=== PATIENT | female | born 1955 | race Caucasian/White ===

== ENCOUNTER 2016-11-22 18:42 | Emergency (ER) | payer MEDICARE ==
--- NOTE | ~2016-11-22 | CR111 ---
[facility]. [facility] A Service of [facility] & [facility] RADIOLOGY TEXT RESULTS PATIENT: SHARON ZUNIGA LOCATION: SED : 55 UNIT #: [id number] AGE: [address]: My Gracia APRN SEX: F ORDER DR: [id number] [address] [address] [id number] E MR#: [id number] Acc #: [id number] NAME: SHARON ZUNIGA : 1955 SEX: F STUDY DATE/TIME: 11/22/2016 18:47 UNIT: SED ROOM: STUDY DESCRIPTION: CR Finger 2 View 3rd Rt Attending Physician: My Gracia A.P.R.N. Ordering Physician: My Chavira A.P.R.N. [facility] Care Physician[facility] REPORT This report is preliminary unless electronic signature is present. EXAM Right third digit 3 views HISTORY Jammed finger. Pain today. FINDINGS 3 views of the right third digit demonstrate moderate flexion deformity at the DIP joint. No fractures identified. No joint space narrowing or opaque foreign body. IMPRESSION Moderate flexion deformity at the DIP joint of the third digit. No fracture. Dictated by... Js Smith M.D. THIS IS AN ELECTRONICALLY VERIFIED REPORT Js Smith M.D. at 11/22/2016 11:27 PM DFL/lanar TD: 11/22/2016 19:20 JOB #: [id number] MEDICAL IMAGING REPORT Page 1 of 1
[~2016-11-22 18:42] MED LIST: HYDROCODON-ACE1 EAC7 PO; NAPROSYN500 MG PO; NEXIUM PO; PHENERGAN25 M1 PO; PRILOSEC PO; RANITIDINE HCL150 M1 PO
== END 2016-11-22 19:41 | disposition home or self-care (01) ==
LOC: SED 18:42
DX: S63.632A Sprain of interphalangeal joint of right middle finger, initial encounter (principal); K21.9 Gastro-esophageal reflux disease without esophagitis; F17.210 Nicotine dependence, cigarettes, uncomplicated; Z90.710 Acquired absence of both cervix and uterus; Z90.49 Acquired absence of other specified parts of digestive tract; W23.0XXA Caught, crushed, jammed, or pinched between moving objects, initial encounter; Y92.009 Unspecified place in unspecified non-institutional (private) residence as the place of occurrence of the external cause
CPT/HCPCS: 29130; 73140; 99283

== ENCOUNTER 2017-03-02 22:06 | Emergency (ER) | payer MEDICARE, OTHER ==
--- NOTE | ~2017-03-02 | CT15 ---
[facility] A Service of [facility] & [facility] RADIOLOGY TEXT RESULTS PATIENT: SHARON ZUNIGA LOCATION: [facility] : 55 UNIT #: [id number] AGE: [address]: Jakob Murillo MD SEX: F ORDER DR: [id number] [facility] [address] [place], [place] [address] [id number] E MR#: [id number] Acc #: [id number] NAME: SHARON ZUNIGA. : 1955 SEX: F STUDY DATE/TIME: 03/03/2017 2:11 UNIT: [facility] ROOM: STUDY DESCRIPTION: CT Angio Chest Attending Physician: Rodríguez Murillo M.D. Ordering Physician: Tyler Fountain M.D. Primary Care Physician: [facility] IMAGING REPORT This report is preliminary unless electronic signature is present EXAM CT chest and abdomen with angiographic reconstructions INDICATION Chest pain starting today with abdomen pain on both sides as well. Evaluate for aortic dissection. TECHNIQUE The patient was given 100 mL of Isovue 370 and spiral imaging was performed through the chest and abdomen. 3-D reconstructions of the arterial structures were generated. There is a comparison abdomen and pelvic CT scan from 07/16/[address] chest from 07/26/[address]. [address] examination was performed with one or more of the following radiation dose reduction techniques: automatic exposure control, adjustment of mA and/or kV according to patient size, and iterative reconstruction. FINDINGS There is a noncalcified right lower lobe nodule measuring 7 mm in diameter. It was present in 2007 and has not changed. The thyroid gland is normal. The aorta is normal in size. The thoracic aorta is normal in appearance. There is no dissection. The abdominal aorta is normal in size and appears normal. There is no mediastinal or hilar adenopathy. The liver, gallbladder, spleen, pancreas, adrenal glands and kidneys are normal except for a 1 cm left renal cyst. There is minimal air in the common bile duct. There is no adenopathy. The bowel is normal. The bones are unremarkable. IMPRESSION 1. The thoracic and abdominal aorta are normal in appearance. 2. Stable noncalcified nodule right lower lobe unchanged from 2008. 3. Small bubble of air in the distal common bile duct of uncertain significance. Correlation with previous sphincterotomy is recommended. [facility] A Service of [facility] & [facility] RADIOLOGY TEXT RESULTS PATIENT: SHARON ZUNIGA LOCATION: [facility] : 55 UNIT #: [id number] AGE: [address]: Jakob Murillo MD SEX: F ORDER DR: 4. Otherwise normal. Dictated by... Osbaldo Penny M.D. THIS IS AN ELECTRONICALLY VERIFIED REPORT Osbaldo Penny M.D. at 03/03/2017 8:21 PM MICHELLE/micah TD: 03/03/2017 15:27 JOB #: [id number] MEDICAL IMAGING REPORT Page 1 of 1 COPY
--- NOTE | ~2017-03-02 | CT13 ---
[facility] A Service of [facility] & [facility] RADIOLOGY TEXT RESULTS PATIENT: SHARON ZUNIGA LOCATION: [facility] : 55 UNIT #: [id number] AGE: [address]: Jakob Murillo MD SEX: F ORDER DR: [id number] [facility] [address] [place], [place] [address] [id number] E MR#: [id number] Acc #: [id number] NAME: SHARON ZUNIGA : 1955 SEX: F STUDY DATE/TIME: 03/03/2017 2:11 UNIT: [facility] ROOM: STUDY DESCRIPTION: CT Angio Abdomen Attending Physician: Jakob Murillo Ordering Physician: Tyler Fountain M.D. Primary Care Physician: [facility]. MEDICAL IMAGING REPORT This report is preliminary unless electronic signature is present EXAM CT angiogram abdomen FINDINGS Please see CT chest angiogram for results. Dictated by... Osbaldo Penny M.D. THIS IS AN ELECTRONICALLY VERIFIED REPORT Osbaldo Penny M.D. at 03/03/2017 8:21 PM MICHELLE/micah TD: 03/03/2017 15:23 JOB #: [id number] MEDICAL IMAGING REPORT Page 1 of 1 COPY
--- NOTE | ~2017-03-02 | CR72 ---
[facility] A Service of [facility] & [facility] RADIOLOGY TEXT RESULTS PATIENT: SHARON ZUNIGA LOCATION: [facility] : 55 UNIT #: [id number] AGE: [address]: Jakob Murillo MD SEX: F ORDER DR: [id number] [facility] [address] [place], [place] [address] [id number] E MR#: [id number] Acc #: [id number] NAME: SHARON ZUNIGA. : 1955 SEX: F STUDY DATE/TIME: 03/02/2017 23:22 UNIT: [facility] ROOM: STUDY DESCRIPTION: CR Chest Single View Portable Attending Physician: Rodríguez Murillo M.D. Ordering Physician: Tyler Fountain M.D. Primary Care Physician: [facility] MEDICAL IMAGING REPORT This report is preliminary unless electronic signature is present EXAM Portable chest, 03/02/2017. INDICATIONS Chest pain beginning today, shortness of air. COMPARISON None. FINDINGS A portable view of the chest was obtained. The heart size and vascularity are normal. The lungs are clear. The bones are unremarkable. IMPRESSION No active disease. Dictated by... Osbaldo Penny M.D. THIS IS AN ELECTRONICALLY VERIFIED REPORT Osbaldo Penny M.D. at 03/03/2017 8:21 PM MICHELLE/linda TD: 03/03/2017 14:30 JOB #: [id number] MEDICAL IMAGING REPORT Page 1 of 1 COPY
--- NOTE | ~2017-03-02 | EKG ---
PATIENT: SHARON ZUNIGA UNIT #: [id number] Ventricular Rate: 68 BPM Atrial Rate: 68 BPM P-R Interval: 142 ms QRS Duration: 72 ms Q-T Interval: 346 ms QTC Calculation(Bezet): 367 ms P [place] Station: 81 degrees Calculated R [place]: 9 degrees Calculated T [place] Station: 9 degrees Diagnosis Line: Normal sinus rhythm Diagnosis Line: Nonspecific T wave abnormality Diagnosis Line: Abnormal ECG Diagnosis Line: Diagnosis Line: Confirmed by ZOË GALAVIZ MD ([id number]) on Diagnosis Line: 03/04/2017 9:59:05 AM INTERPRETING MD: KENDY
[2017-03-02 23:50] LABS: BASOPHIL% 0.4 % (0-2.5); EOSINOPHIL# 0.2 X10e3 (0-0.7); EOSINOPHIL% 1.8 % (0.0-7.0); HEMATOCRIT 38.2 % (35.0-45.0); HEMOGLOBIN 12.2 gm/dL (12.0-16.0); LYMPHOCYTE# 2.5 X10e3 (1.0-3.5); LYMPHOCYTE% 21.7 % (17.0-45.0); MEAN CELL VOLUME 82.3 FL (83-96); MEAN CORPUSCULAR HEMOGLOBIN 26.3 PG (28-34); MEAN PLATELET VOLUME 8.1 FL (6.5-11.5); MONOCYTE# 0.8 X10e3 (0-1.0); MONOCYTE% 6.9 % (3.0-12.0); NEUTROPHIL% 69.2 % (40-75); PLATELET COUNT 249 X10e3 (140-420); RED BLOOD COUNT 4.64 X10e (3.90-5.30); RED CELL DISTRIBUTION WIDTH 13.6 % (11.0-15.5); WHITE BLOOD COUNT 11.5 X10e3 (4.0-10.5)
[2017-03-02 23:53] LABS: DIFF IND NO
[2017-03-03 00:08] LABS: ALBUMIN SERUM 3.9 g/dL (3.5-5.0); ALKALINE PHOSPHATASE 72 U/L (32-92); ALT (SGPT) 13 U/L (10-40); AST (SGOT) 17 U/L (10-42); BILIRUBIN,TOTAL 0.9 mg/dL (0.2-2.0); BLOOD UREA NITROGEN 12 mg/dL (9-23); CARBON DIOXIDE 24 mmol/L (22-31); CHLORIDE 102 mmol/L (100-111); CREATININE SERUM 0.8 mg/dL (0.6-1.4); GLOM FILT RATE Estimated 79.6 mL/min (>60); GLUCOSE FASTING 103 mg/dL (70-110); POTASSIUM 3.6 mmol/L (3.5-5.1); PROTEIN TOTAL SERUM 7.5 g/dL (6.0-8.3); SODIUM 133 mmol/L (135-145)
[2017-03-03 00:10] LABS: BILIRUBIN, DIRECT <0.1 mg/dL (0.0-0.2); BILIRUBIN,INDIRECT 0.8 mg/dL (0.0-0.9)
[2017-03-03 00:16] LABS: POC - CKMB <1.0 ng/mL (0.0-7.9); POC - TROPONIN <0.05 ng/mL (<=0.05)
[2017-03-03 01:43] LABS: POC - CKMB <1.0 ng/mL (0.0-7.9); POC - TROPONIN <0.05 ng/mL (<=0.05)
== END 2017-03-03 03:20 | disposition home or self-care (01) ==
LOC: CED 22:06
PROVIDERS: Emergency Medicine
DX: R07.89 Other chest pain (principal); Z91.040 Latex allergy status; Z98.51 Tubal ligation status
CPT/HCPCS: 36415; 71010; 71275; 74175; 80048; 80076; 82553; 83690; 83880; 84484; 85025; 93005; 96361; 96374; 99285; J2270; Q9967

== ENCOUNTER → 2017-05-11 | Outpatient (CLI) | payer MEDICARE ==
--- NOTE | ~2017-05-11 | MY29 ---
[facility] A Service of [facility] RADIOLOGY TEXT RESULTS PATIENT: SHARON ZUNIGA LOCATION: [facility] : 55 UNIT #: [id number] AGE: [address]: Lynette Guerrero MD SEX: F ORDER DR: [id number] [place] [id number] [facility] [place], [place] [address] [id number] O MR#: [id number] Acc #: [id number] NAME: SHARON ZUNIGA. : 1955 SEX: F STUDY DATE/TIME: 05/11/2017 11:05 UNIT: [facility] ROOM: STUDY DESCRIPTION: [facility] SCREENING W/ CAD BILAT Attending Physician: Lynette Guerrero M.D. Referring Physician: Lynette Guerrero M.D. Ordering Physician: Lynette Guerrero M.D. Primary Care Physician: Lynette Guerrero M.D. MEDICAL IMAGING REPORT This report is preliminary unless electronic signature is present EXAM Bilateral digital screening mammogram with CAD DATE 05/09/2017 HISTORY 61-year-old female with family history of breast cancer in her sister. No personal history of breast cancer or current complaints. COMPARISON Bilateral screening mammogram 09/16/2009 and 09/10/2008 performed at [facility] mobile unit. FINDINGS CC and MLO views were obtained of each breast utilizing digital technique and reviewed with an FDA-approved CAD device. Scattered fibroglandular densities are present bilaterally. No new or suspicious nodule, architectural distortion or clustered microcalcification is seen. No abnormal skin thickening or nipple retraction. Benign-appearing calcifications within the right breast, unchanged. IMPRESSION 1. BIRADS 2. Benign findings. Routine bilateral screening mammogram recommended in 1 year. Patients over the age of 40 are entered into a reminder system with target due date for the next mammogram. A result letter will also be sent to the patient. BIRADS: 2, benign findings. [facility] A Service [facility] RADIOLOGY TEXT RESULTS PATIENT: SHARON ZUNIGA LOCATION: [facility] : 55 UNIT #: [id number] AGE: [address]: Lynette Guerrero MD SEX: F ORDER DR: Dictated by... Carlotta Watson M.D. THIS IS AN ELECTRONICALLY VERIFIED REPORT Carlotta Watson M.D. at 05/14/2017 8:50 AM EUGENE/agatha TD: 05/12/2017 03:55 JOB #: [id number] MEDICAL IMAGING REPORT Page 1 of 1 COPY
== END | disposition home or self-care (01) ==
LOC: CWCC 10:36
DX: Z12.31 Encounter for screening mammogram for malignant neoplasm of breast (principal); Z80.3 Family history of malignant neoplasm of breast
CPT/HCPCS: G0202